=== PATIENT | female | born 1985 | race American Indian/Alaskan Native ===

== ENCOUNTER 2021-12-21 00:38 | Emergency (ER) | payer OTHER ==
[~2021-12-21] VITALS: Ht 172.7 cm; Wt 81.7 kg
[2021-12-21] MEDS ORDERED: IRON325 M1 PO (05:08)
== END 2021-12-21 05:33 | disposition home or self-care (01) ==
LOC: ED 00:38
DX: F10.129 Alcohol abuse with intoxication, unspecified (principal); D64.9 Anemia, unspecified
CPT/HCPCS: 36415; 80053; 81001; 84703; 85025; 96374; 96375; 99284-25; G0480; J2310; J2405; J7121